=== PATIENT | male | born 1980 | race Caucasian/White ===

== ENCOUNTER 2020-03-24 15:45 | Emergency (ER) | payer OTHER ==
[~2020-03-24] VITALS: Ht 185.4 cm; Wt 77.1 kg
[~2020-03-24 15:45] MED LIST: LOPE2C PO; Norco 5-325 Ta1 EACH PO; Zofran Odt4 MG SL
== END 2020-03-24 16:52 | disposition home or self-care (01) ==
LOC: ER 15:45
DX: G56.01 Carpal tunnel syndrome, right upper limb (principal); F17.200 Nicotine dependence, unspecified, uncomplicated
CPT/HCPCS: 29125; 99283-25